=== PATIENT | female | born 1965 | race African-American/Black ===

== ENCOUNTER 2025-04-01 10:23 | Emergency (ER) | payer OTHER, SELFPAY ==
--- NOTE | ~2025-04-01 | XR_ITS ---
EXAMINATION: XR CHEST CLINICAL INFORMATION: Shortness of breath COMPARISON: None available. TECHNIQUE: Frontal view of the chest was obtained. FINDINGS: No consolidation, pleural effusion or pneumothorax. Mild prominence of the interstitial markings. Cardiomediastinal silhouette size is normal. Degenerative changes in the acromioclavicular joints. XR/XR chest 1V IMPRESSION: Mild interstitial lung edema versus acute small airway inflammatory process. Electronically signed by: Merritt Flores MD 04/01/2025 11:45 AM CINDY
[2025-04-01 10:32] VITALS: BP 159/76; BP 162/55; PULSE 113; PULSE 118; RESP 20; TEMP 36.6; O2SAT 100; O2SAT 92; BMI 31.4
[2025-04-01 10:41] VITALS: BP 159/76; PULSE 118; RESP 20; TEMP 36.6; O2SAT 92
--- NOTE | 2025-04-01 11:28 | ECG_ITS ---
Test Reason : SOB Blood Pressure : */* mmHG Vent. Rate : 107 BPM Atrial Rate : 107 BPM P-R Int : 170 ms QRS Dur : 80 ms QT Int : 330 ms P-R-T Axes : 66 27 57 degrees QTcB Int : 440 ms Sinus tachycardia Cannot rule out Anterior infarct , age undetermined Abnormal ECG No previous ECGs available Referred By: Generic ED Physician Electronically Signed By: CALI RUIZ MD
--- NOTE | 2025-04-01 12:05 | ED.GENADULT ---
HPI - General Adult General Chief complaint: Dyspnea Stated complaint: SOB,UPDRAFT GIVEN PER EMS Time Seen by Provider: 04/01/25 11:53 Source: patient Mode of arrival: ambulatory Limitations: no limitations History of Present Illness ED Provider: DR. Guaman HPI narrative: 59-year-old female history of asthma presented presented with 2 days of shortness of breath and wheezing symptoms started after patient was cleaning the basement thinking that she was exposed to something that triggered her asthma, patient used albuterol with minimal improvement today patient feels much better, no chest pain, no lower extremity swelling or edema, no fever, no chills. Patient is active cigarette and marijuana smoker. Related Data Previous Rx's ?Medication ?Instructions ?Recorded albuterol sulfate 2.5 mg/3 mL 2.5 mg (3 mL) inhalation Q4-6H PRN 04/01/25 (0.083 %) solution for nebulization shortness of breath or wheezing #90 mL albuterol sulfate 90 mcg/actuation 2 puff inhalation Q6H PRN 04/01/25 aerosol inhaler (Ventolin HFA) shortness of breath or wheezing #8.5 grams azithromycin 250 mg tablet See Rx Instructions PO .COMPLEX #6 04/01/25 (Zithromax Z-Everette) tabs prednisone 10 mg tablet 10 mg PO BID #10 tabs 04/01/25 Allergies Allergy/AdvReac Type Severity Reaction Status Date / Time bupropion (From Wellbutrin) Allergy Hives Verified 04/01/25 10:40 Review of Systems Review of Systems: All other systems are reviewed and are negative Constitutional: Reports as per HPI and Reports no additional constitutional complaints Eyes: Reports as per HPI and Reports no additional eye complaints Reports system reviewed and no additional complaints, except as documented Cardiovascular: Reports as per HPI and Reports no additional cardiovascular complaints Respiratory: Reports as per HPI and Reports no additional respiratory complaints Gastrointestinal: Reports as per HPI and Reports no additional gastrointestinal complaints Genitourinary: Reports no additional female genitourinary complaints Musculoskeletal: Reports no additional musculoskeletal complaints Skin/Breast: Reports system reviewed and no additional complaints, except as docu Psychiatric: Reports no additional psychiatric complaints Endocrine: Reports no additional endocrine complaints Hematologic/Lymphatic: Reports no additional hematologic/lymphatic complaints Allergic/Immunologic: Reports no additional allergic/immunologic complaints Reports system reviewed and no additional complaints, except as documented and Reports Abnormal speech present [facility] Social History Social History Smoked in Last 30 Days: Yes Use of substances other than those prescribed or required for medical reasons: Yes Substance Use Type: Marijuana Substance Use Frequency: Daily Advance Directives: No Advance Directives Information Provided: Yes Do you have a plan to hurt others: No Plan Patient : No Physical Exam ED Vital Signs: Vital Signs - 24 hr 04/01/25 10:32 04/01/25 10:41 04/01/25 12:21 Temperature 97.9 F 97.9 F Pulse Rate 118 H 118 H 118 H Respiratory Rate 20 20 22 H Blood Pressure 159/76 H 159/76 H Pulse Oximetry 92 92 Oxygen Delivery Method Room Air Room Air 04/01/25 13:10 Temperature 97.6 F Pulse Rate 116 H Respiratory Rate 22 H Blood Pressure 163/94 H Pulse Oximetry 92 Oxygen Delivery Method Room Air BMI result Body Mass Index 31.4 Vital signs have been reviewed and appear to be correct. Blood pressure elevated. Heart rate tachycardic, Respiratory rate normal. Temperature normal. Oxygen saturation normal. Appearance: Alert. Oriented X3. No acute distress. Head: Normal external exam. Normocephalic. Atraumatic. No Rosen signs noted. No raccoon eyes noted Eyes: PERRLA. EOMI. Conjunctiva and sclera normal. Eyelids normal. ENT: TM's Normal. Pharynx normal. Uvula midline. Moist mucous membranes. No trismus noted. No drooling noted. No muffled voice noted. Neck: Normal inspection. Neck supple. FROM. No adenopathy. Thyroid Normal. No meningeal signs. No neck mass noted. CVS: Normal heart rate and rhythm. Heart sound normal. No murmurs noted. Pulses normal throughout. Respiratory: No respiratory distress. Painless inspiration. Breath sounds normal. No wheezes/rales/rhonchi noted. Chest nontender. No accessory muscle usage noted or decreased air movement noted. Abdomen: Soft and nontender. Bowel sounds normal in all 4 quadrants. No distention noted. No organomegaly noted. No visible injury noted. Back: No CVA tenderness. Full range of motion noted. Skin: Skin warm and dry. Normal skin color. Normal skin turgor. No rashes/lesions/lacerations noted. Extremities: No lower extremity edema. Extremities exhibit normal range of motion. Extremities nontender. Neuro: Oriented X 3. Cranial nerve exam: II-XII are grossly intact No motor deficit. No sensory deficit. Reflexes normal. Course Reevaluation(s) Reevaluation #1: 59-year-old female history of asthma presented with shortness of breath since yesterday, patient has issue at with her 1st in the basement with leakage, questionable mold building in the basement trigger patient's symptoms. Patient today feels much better in the ED and requesting to be discharged., will start the patient on prednisone/Z-Everette/albuterol and follow-up with PCP. Time: 15:04 Medications Administered Discontinued Medications Generic Name Dose Route Start Last Admin Trade Name Freq PRN Reason Stop Dose Admin Albuterol Sulfate 2.5 mg/ 0 mg 04/01/25 12:17 04/01/25 12:21 Albuterol/Ipratropium 3 ml INHALE 04/01/25 12:18 1 dose ONCE ONE Administration Methylprednisolone Sodium Succinate 125 mg 04/01/25 12:11 04/01/25 12:24 Methylprednisolone Sod Succ 125 Mg/2 Ml Vial IVPUSH 04/01/25 12:12 125 mg ONCE ONE Administration Medical Decision Making Differential Diagnosis Differential Diagnoses: The differential diagnosis associated with the presentation includes (Asthma, pneumonia, pneumothorax, pleural effusion, electrolyte derangement, ACS.) Admission/Observation Consideration of admission/observation: Escalation of care including admission/observation considered Lab Data MDM Lab Attestation statement: I reviewed the patient's lab results. 04/01/25 11:51 04/01/25 11:51 Labs: Lab Results 04/01/25 Range/Units 11:51 WBC 11.8 H (4.8-10.8) X10*3/uL RBC 5.50 (4.20-5.50) X10*6/uL Hgb 15.1 (12.0-16.0) g/dl Hct 45.1 (37.0-47.0) % MCV 82.0 (80.0-98.0) fL MCH 27.5 (27.0-33.0) pg MCHC 33.5 (31.0-35.0) g/dl RDW 12.4 (11.0-16.0) % Plt Count 319 (160-400) X10*3/uL MPV 9.7 (9.4-12.3) fL Immature Gran % (Auto) 0.4 (0.0-0.4) % Neut % (Auto) 92.5 H (45-73) % Lymph % (Auto) 5.6 L (20-40) % Gilmer % (Auto) 1.3 L (2-11) % Eos % (Auto) 0.0 (0-4) % Baso % (Auto) 0.2 (0-2) % Lymph # (Auto) 0.7 L (1.2-4.9) X10*3/uL Gilmer # (Auto) 0.2 (0.1-1.2) X10*3/uL Eos # (Auto) 0.0 (0.0-0.4) X10*3/uL Baso # (Auto) 0.0 (0.0-0.2) X10*3/uL Abs Immat Gran (auto) 0.05 H (0.00-0.03) X10*3/uL Absolute Neuts (auto) 10.9 H (2.0-8.3) x10*3/uL Absolute Nucleated RBC 0.000 (0.0-0.012) X10*3/uL Nucleated RBC % (auto) 0.0 (0.0-0.2) /100WBC Smear Tech's Comments VERIFIED Sodium 142 (135-145) mmol/L Potassium 4.0 (3.3-5.1) mmol/L Chloride 108 (96-108) mmol/L Carbon Dioxide 23 (22-29) mmol/L Anion Gap 15 (12-20) BUN 13 (9-16) mg/dL Creatinine 0.71 (0.5-1.4) mg/dL Estim Creat Clear Calc 92.2 Estimated GFR > 60 Random Glucose 163 H (60-115) mg/dL Calcium 11.8 H (8.4-10.2) mg/dL Troponin I High Sens < 2.7 (<3.5-17.0) ng/L NT-Pro-B Natriuret Pep 30.2 (<300) pg/mL Independent Interpretation I performed an independent interpretation of an: EKG (Sinus tachycardia at 01:07, normal axis deviation, normal intervals, no ST-T changes, no old EKG to compare.) Radiology Impression Discussion of test interpretation with radiology: I have reviewed the radiologist's reading. Discharge Plan Discharge Clinical Impression: Asthma with exacerbation Patient Disposition: Home, Self-Care Instructions: Asthma (ED) Prescriptions: New albuterol sulfate [Ventolin HFA] 90 mcg/actuation HFA aerosol inhaler 2 puff inhalation Q6H PRN (Reason: shortness of breath or wheezing) Qty: 8.5 0RF albuterol sulfate 2.5 mg /3 mL (0.083 %) solution for nebulization 2.5 mg inhalation Q4-6H PRN (Reason: shortness of breath or wheezing) Qty: 90 0RF prednisone 10 mg tablet 10 mg PO BID Qty: 10 0RF azithromycin [Zithromax Z-Everette] 250 mg tablet See Rx Instructions .ROUTE .COMPLEX Qty: 6 0RF Rx Instructions: For 250 mg dose pack: take 500 mg today (day 1), then 250 mg for 4 days (days 2-5) Referrals: Marci Mora MD [Primary Care Provider, Internal Medicine] Interventions: ED Discharge Assessment Last Done: 04/01/25 15:06 Print Language: Macedonian
[2025-04-01 12:07] LABS: Hematocrit 45.1 % (37.0-47.0); Hemoglobin 15.1 g/dl (12.0-16.0); Imm Gran Abs Auto 0.05 X10*3/uL (0.00-0.03); Imm Gran Pct Auto 0.4 % (0.0-0.4); Lymphocytes Absolute Auto 0.7 X10*3/uL (1.2-4.9); MANUAL DIFF FLAG SCAN; Mean Corpuscular HGB Conc 33.5 g/dl (31.0-35.0); Mean Corpuscular Hemoglobin 27.5 pg (27.0-33.0); Mean Corpuscular Volume 82.0 fL (80.0-98.0); NRBC Abs Auto 0.000 X10*3/uL (0.0-0.012); NRBC Pct Auto 0.0 /100WBC (0.0-0.2); Platelet Count 319 X10*3/uL (160-400); Red Blood Count 5.50 X10*6/uL (4.20-5.50); SCAN SMEAR FLAG 1; White Blood Count 11.8 X10*3/uL (4.8-10.8)
[2025-04-01 12:18] LABS: Anion Gap 15 (12-20); Blood Urea Nitrogen 13 mg/dL (9-16); Calcium 11.8 mg/dL (8.4-10.2); Carbon Dioxide 23 mmol/L (22-29); Chloride 108 mmol/L (96-108); Creatinine Clr Calc Pharmacy 92.2; Estimated Glomerular Filt Rate > 60; Potassium 4.0 mmol/L (3.3-5.1); Sodium 142 mmol/L (135-145)
[2025-04-01 12:21] VITALS: PULSE 118; RESP 22; O2SAT 94
[2025-04-01] MEDS: Albuterol Sulfate 2.5 MG, Albuterol/Iprat 2.5/0.5MG 3 ML 3 ML INHALE (12:21)
[2025-04-01 12:25] LABS: Troponin-I High Sensitivity < 2.7 ng/L (<3.5-17.0)
[2025-04-01 12:30] LABS: NT Pro B Type Natriuretic Pept 30.2 pg/mL (<300)
--- OUTSIDE RECORDS SUMMARY | 2025-04-01 13:03 | XMS_ITS | Encounter Summary ---
Author Organization [facility] Address [address] [facility] [address] [place] [phone] Phone Care Team Providers Care Helicopter Pilot Name Role Phone Marci Mora MD Primary Care Provider Marci Mora MD Unavailable [phone] Encounter Details Date Type Department Care Team (Late st Contact Info) Description 05/20/2024 Procedure Pass [facility], Ct Scan - [address] [id number] Social History Tobacco Use Types Packs/Day Years Used Date Smoking Tobacco: Some Days Cigarettes 0.5 45.9 Started: 1979 Smokeless Tobacco: Never Comments:smokes about 7 ciga rettes, up to 1/2 PPD, started around 16 Alcohol Use Standard Drinks/Week Comments Yes 0 (1 standard drink = 0.6 oz pur e alcohol) 3 per week Child or Family Care Answer Date Record ed Do you have problems with on e of the following making it difficult for you to work, study, or receive health care? No 10/31/2023 Education Answer Date Recorded Are you interested in help w ith more adult education (for example, completing high school, GED, job training, learning the Greek language, technical skills, or developing parenting skills)? No 10/31/2023 Are you concerned about learning? Not on file 10/31/2023 No 10/31/2023 Yes 10/31/2023 Food Answer Date Recorded Within the past 6 months we worried whether our food would run out before we got money to buy more. Never True 10/31/2023 Within the past 6 months the food we bought just didn't last and we didn't have enough money to get more. Never True Residential Stability Answer Date Recor ded What is your housing situation today? I have finn burns 10/31/2023 How many times have you move d in the past 12 months? Zero (I did not move) 10/31/2023 Paying for Meds Answer Date Recorded Do you have trouble paying for medicines? No 10/31/2023 Paying Utility Bills Answer Date Record ed Do you have trouble paying your heating or elect ricity bill? No 10/31/2023 Transportation Answer Date Recorded Has the lack of transportati on kept you from medical appointments or from getting medications? No 10/31/2023 Unemployment Answer Date Recorded Are you currently unemployed or working on a part-time or temporary basis, and looking for work? No 10/27/2021 Digital Access Answer Date Recorded No 10/31/2023 Yes 10/31/2023 Do you have reliable internet access at home? Ye s 10/31/2023 Do you have a device (e.g., phone, tablet, computer) with a working camera? Yes 10/31/2023 Intimate Partner Violence Answer Date R ecorded Are you denied basic needs s uch as food, clothing, or medical care? No 01/11/2024 In the past 12 months have y ou been in a relationship with a person who hurts, threatens, or tries to control you? No 01/11/2024 Are you denied basic needs s uch as food, clothing, or medical care? No 01/11/2024 In the past 12 months have y ou been in a relationship with a person who hurts, threatens, or tries to control you? No 01/11/2024 Comments Unknown Sex and Gender Information Value Date Recorded Sex Assigned at Female 12/12/2022 1:14 PM EDT Legal Sex Female 9:40 PM EDT Gender Identity Female 12/12/2022 1:14 PM EDT Sexual Orientation Asexual 01/14/2025 11 :24 AM EDT Sexual Orientation Straight 01/14/2025 11 :24 AM EDT Occupation Industry Job Start Date Job End Date [employer] Not on file Not on file Not on file documented as of this encounter Plan of Treatment Upcoming Encounters Date Type Department Care Team (Late st Contact Info) Description 06/11/2025 11:30 AM EST Office Visit [facility] Pulmonary, Allergy and Critical Care Medicine [address] [place] [address] Han Dickinson MD [address] [address] [email or web address] documented as of this encounter Visit Diagnoses Not on filedocumented in this encounter Additional Health Concerns Infection Onset Date Last Indicated Resolved Time CoV-Risk Comment:Per note documentation 12/31/2024 12/31/2024 12:51 PM EDT Assessment Noted Time PHQ-9 Depression Total Score: 4 08/01/19 24 1:54 PM EDT A Body Mass Index follow-up plan has been documented for the patient 10/31/2023 10:13 PM EDT PHQ-2 Depression Total Score: 0 10/31/19 8:31 AM EDT documented as of this encounter Care Teams Helicopter Pilot Relationship Specialty Start Date End Date Marci Mora MD [address] [place] [phone] PCP - General Internal Medicine 09/05/17 Marci Mora MD [address] [place] [phone] Insurance Assigned Provider 08/26/23 08/25/24 documented as of this encounter Additional Source Comments The information contained in this document represents components of the legal health record. It is not the complete legal health record.[facility]
--- OUTSIDE RECORDS SUMMARY | 2025-04-01 13:03 | XMS_ITS | Encounter Summary ---
Author Organization [facility] Address [address] [place] [address] [place] [phone] Phone Care Team Providers Care Catalyst Unit Operator Name Role Phone Marci Mora MD Primary Care Provider [phone] Marci Mora MD Unavailable [phone] Encounter Details Date Type Department Care Team (Late st Contact Info) Description 01/26/2024 Procedure Pass [facility], [address] [place] [address] Social History Tobacco Use Types Packs/Day Years [...] high school, GED, job training, learning the Azerbaijani language, technical skills, or developing parenting skills)? [...] Pulmonary, Allergy and Critical Care Medicine [address] [facility] [place] [address] Han Dickinson MD [address] [address] [email or web address] documented as of this encounter Visit Diagnoses Not on filedocumented in this encounter Additional Health Concerns Infection Onset Date Last Indicated Resolved Time COVID-19 12/30/2023 01/12/2024 02/02/2024 1:21 AM EDT CoV-Risk Comment:Per note documentation 12/31/2024 12/31/2024 12:51 PM EDT Assessment Noted Time PHQ-9 Depression Total Score: 4 08/01/19 1:54 PM EDT A Body Mass Index follow-up plan has been documented for the patient 10/31/2023 10:13 PM EDT PHQ-2 Depression Total Score: 0 10/31/19 8:31 AM EDT documented as of this encounter Care Teams Catalyst Unit Operator Relationship Specialty Start Date End Date Marci Mora MD [address] [place] [phone] PCP - General Internal Medicine 09/05/17 Marci Mora MD [address] [place] [phone] Insurance Assigned Provider 08/26/23 08/25/24 documented as of this encounter Additional Source Comments The information contained in this document represents components of the legal health record. It is not the complete legal health record.[facility]
--- OUTSIDE RECORDS SUMMARY | 2025-04-01 13:03 | XMS_ITS | Encounter Summary ---
Author Organization [facility] Address [address] [facility] [address] [place] [phone] Phone Care Team Providers Care Nurse Substance Abuse Name Role Phone Marci Mora MD Primary Care Provider Marci Mora MD Unavailable [phone] Encounter Details Date Type Department Care Team (Late st Contact Info) Description 01/11/2024 Procedure Pass [facility], Ct Scan - [address] [address] Social History Tobacco Use Types Packs/Day Years [...] high school, GED, job training, learning the American language, technical skills, or developing parenting skills)? [...] on file documented as of this encounter Functional Status * Calculated C-SSRS Risk Score (Lifetime/Recent) Answer Date of Assessment Author No Risk Indicated 01/11/2024 8:49 AM EDT Cale Smith RN * [place] Suicide Severity Rating Scale (Screener/Recent Self-Report) Question Answer Date of Assessment Author 1. Wish to be (Past 1 Month) No 024 8:49 AM EDT Blank Smith, JAKE 2. Non-Specific Active Suici constance Thoughts (Past 1 Month) No 01/11/2024 8:49 AM EDT Blank Smith RN 6. Suicidal Behavior (Lifetime) No 8:49 AM EDT Blank Simth RN documented as of this encounter Plan of Treatment Upcoming Encounters Date Type Department Care Team (Late st Contact Info) Description 06/11/2025 11:30 AM EST Office Visit [facility] Pulmonary, Allergy and Critical Care Medicine [address] [place] [address] Han Dickinson MD [address] [place] [phone] [email or web address] documented as of this encounter Visit Diagnoses [...] documented as of this encounter Care Teams Nurse Substance Abuse Relationship Specialty Start Date End Date Marci Mora MD [address] [place] [phone] [email or web address] PCP - General Internal Medicine 09/05/17 Marci Mora MD [address] [place] [address], [address] [place] [address] [email or web address] Insurance Assigned Provider 08/26/23 08/25/24 documented as of this encounter Additional Source Comments The information contained in this document represents components of the legal health record. It is not the complete legal health record.[facility]
--- OUTSIDE RECORDS SUMMARY | 2025-04-01 13:03 | XMS_ITS | Encounter Summary ---
Author Organization [facility] Address [address] [facility] [address] [place] [address] Phone Care Team Providers Care Lawn Caretaker Name Role Phone Kiki Valencia DO Primary Care Provider Marci Mora MD Primary Care Provider [phone] Marci Mora MD Unavailable [phone] Encounter Details Date Type Department Care Team (Late st Contact Info) Description 05/16/2017 Ancillary Orders [facility], X-Ray - [address] [place] [address] Ness Lambert, [facility] [address] [facility], [address] [place] [address] [email or web address] Fever, unspecified fever cause; Malaise; Wheezing Social History Tobacco Use Types Packs/Day Years Used Date Smoking Tobacco: Never Assessed Comments Unknown Sex and Gender Information Value Date Recorded Sex Assigned at Female 12/12/2022 1:14 PM EDT Legal Sex Female 9:40 PM EDT Gender Identity Female 12/12/2022 1:14 PM EDT Sexual Orientation Asexual 01/14/2025 11 :24 AM EDT Sexual Orientation Straight 01/14/2025 11 :24 AM EDT documented as of this encounter Plan of Treatment Upcoming Encounters Date Type Department Care Team (Late st Contact Info) Description 06/11/2025 11:30 AM EST Office Visit [facility] Pulmonary, Allergy and Critical Care Medicine [address] [place] [address] [place] [address] Han Dickinson MD [address] [place] [address] 2nd [place] [address] [email or web address] documented as of this encounter Results * XR CHEST PA AND LATERAL 2 VIEWS (05/16/2017 12:36 PM EST) Anatomical Region Laterality Modality Chest Radiographic Mariely ging 05/16/2017 12:5 0 PM EST Impressions 05/16/2017 12:52 PM EST Negative chest radiographs. POS - [id number] Narrative 05/16/2017 12:52 PM EST HISTORY: Fever, wheezing and malaise. COMPARISON: Chest x-rays from eight 08/03 to 02/24/2017. FINDINGS: PA and lateral views of the chest obtained. Lungs appear clear. No evidence of pleural effusions or pneumothorax. Great vessel and cardiomediastinal contours remain normal and stable in appearance. Procedure Note Vikas Harris MD - 05/16/2017 HISTORY: Fever, wheezing and malaise. COMPARISON: Chest x-rays from eight 08/03 to 02/24/2017. FINDINGS: PA and lateral views of the chest obtained. Lungs appear clear. No evidence of pleural effusions or pneumothorax.Great vessel and cardiomediastinal contours remain normal and stable inappearance. IMPRESSION: Negative chest radiographs. POS - [id number] us Ness Lambert [facility] IMG XR CHEST Final Re sult documented in this encounter Visit Diagnoses Diagnosis Fever, unspecified fever cause Malaise Other malaise and fatigue Wheezing Fever, unspecified fever cause Malaise Other malaise and fatigue Wheezing documented in this encounter Additional Health Concerns Infection Onset Date Last Indicated Resolved Time CoV-Risk 02/21/2023 02/21/2023 03/04/2023 1:21 AM EDT CoV-Risk 08/01/2023 08/01/2023 08/12/2023 1:22 AM EDT COVID-19 12/30/2023 01/12/2024 02/02/2024 1:21 AM EDT CoV-Risk Comment:Per note documentation 12/31/2024 12/31/2024 12:51 PM EDT documented as of this encounter Care Teams Lawn Caretaker Relationship Specialty Start Date End Date Kiki Valencia DO [address] [place] [phone] PCP - General 03/07/17 09/04/17 Marci Mora MD [address] [place] [phone] PCP - General Internal Medicine 09/05/17 Marci Mora MD [address] [place] [phone] Insurance Assigned Provider 08/26/23 08/25/24 documented as of this encounter Additional Source Comments The information contained in this document represents components of the legal health record. It is not the complete legal health record.[facility]
--- OUTSIDE RECORDS SUMMARY | 2025-04-01 13:03 | XMS_ITS | Clinical Summary ---
Author Organization [facility] Address [address] [place] [id number] Phone Care Team Providers Care Malt Liqu[employer] Sales Representative Name Role Phone Marci Mora MD Primary Care Provider Allergies Active Allergy Reactions Criticality Noted Date Comments Bupropion Hcl Hives Medium 09/06/2017 Hives, itchy Medications fluticasone furoate-vilante roL (BREO ELLIPTA) 200-25 mcg/dose inhalerIndicati ons:Severe asthma with exacerbation, unspecified whether persistent TAKE 1 PUFF BY MOUTH EVERY DAY 60 each 5 5 Active albuterol 2.5 mg /3 mL (0.083 %) nebulizer solution Take 3 mL (2.5 mg total) by nebulization every 4 (four) hours as needed for shortness of breath/dyspnea. Contact your PCP for refills 75 mL 5 Active predniSONE (DELTASONE) 10 MG tablet TAKE 6 TABLETS DAILY FOR 2 DAYS , TAKE 5 TABLETS DAILY FOR 2 DAYS , TAKE 4 TABLETS DAILY FOR 2 DAYS , TAKE 3 TABLETS DAILY FOR 2 DAYS , TAKE 2 TABLETS DAILY FOR 2 DAYS , TAKE 1 TABLET DAILY FOR 2 DAYS 42 tablet 5 Active nicotine (NICODERM CQ) 21 mg/[address] 1 patch onto the skin daily. 30 patch 5 Active cholecalciferol (VITAMIN D3) 50,000 unit capsule Take 1 capsule (50,000 Units total) by mouth once a week. 4 capsule 5 Active albuterol 90 mcg/actuation inhalerIndicati ons:Shortness of breath INHALE 2 PUFFS INTO THE LUNGS EVERY 4 HOURS NEEDED FOR WHEEZE 6.7 g 2 5 Active celecoxib (CELEBREX) 200 MG capsule TAKE 1 CAPSULE BY MOUTH TWICE A DAY 60 capsule 1 5 Active Active Problems Problem Noted Date Diagnosed Date Asthma exacerbation 12/31/2024 Assessment & Plan (01/02/2025 12:49 PM EDT): Patient reports has had worsened short of breath for few weeks. Did have prednisone course as outpatient When presented to the ED using grocery clerk marking muscles respiratory elevated. Improved in the ED with Solu-Medrol and nebs. Admission requested. Chest x-ray negative. D-dimer 333 Reports she is short of breath chronically. Short of breath with mild exertion she does not have a compliance program manager did have PFTs in the past year see below. Likely has components of COPD and restrictive lung disease in addition to asthma, no bronchodilator response on her PFTs in 2023 Improving overall , Did need oxygen last night -Continue IV Solu-Medrol, DuoNebs - Outpatient referral to pulm regarding respiratory issues, also wonder if she has RICKY-no records in epic of a sleep study or echo, appointment made (PFTS bnormal pulmonary function studies as evidenced by a mild restrictive ventilatory defect and complex restriction possibly on the basis of obesity given the markedly impaired ERV and elevated BMI. There is a moderate impairment in diffusion capacity which, in this clinical context, may be secondary to emphysema, pulmonary vascular disease, interstitial lung disease and/or anemia. Spirometry reveals no evidence of airflow limitation and no bronchodilator response.) Assessment & Plan (01/01/2025 2:22 PM EDT): Patient reports has had worsened short of breath for few weeks. Did have prednisone course as outpatient When presented to the ED using grocery clerk marking muscles respiratory elevated. Improved in the ED with Solu-Medrol and nebs. Admission requested. Chest x-ray negative. D-dimer 333 Reports she is short of breath chronically. Short of breath with mild exertion she does not have a compliance program manager did have PFTs in the past year see below. Likely has components of COPD and restrictive lung disease in addition to asthma, no bronchodilator response on her PFTs in 2023 -Continue IV Solu-Medrol, DuoNebs - Outpatient referral to pulm regarding respiratory issues, also wonder if she has RICKY-no records in epic of a sleep study or echo (PFTS bnormal pulmonary function studies as evidenced by a mild restrictive ventilatory defect and complex restriction possibly on the basis of obesity given the markedly impaired ERV and elevated BMI. There is a moderate impairment in diffusion capacity which, in this clinical context, may be secondary to emphysema, pulmonary vascular disease, interstitial lung disease and/or anemia. Spirometry reveals no evidence of airflow limitation and no bronchodilator response.) Assessment & Plan (12/31/2024 10:22 PM EDT): - Patient reports significantly worsening shortness of breath since yesterday not responding to albuterol inhalers and nebulizers - She is not sure why set off this exacerbation but she was [facility] a [facility]26 and feels that she may have caught a cold at that time as she has had worsening congestion since that day -Continue IV Solu-Medrol, DuoNebs -prn Robitussin -Oxygen supplementation if needed Hilar adenopathy 05/20/2024 Assessment & Plan (05/20/2024 9:35 PM EST): This was noted on a CT in December and a 3 month follow up was recommended. When this was last ordered, it was not approved. This does not make sense as she is a smoker. Will order again. Orders: CT Chest; Future Enlarged lymph nodes 03/18/2024 Assessment & Plan (03/18/2024 4:41 PM EDT): This was noted incidentally on chest CT. Follow up ordered. Vitamin D deficiency 01/28/2024 Adrenal nodule 01/28/2024 Assessment & Plan (01/28/2024 9:38 PM EDT): Will get MRI for further evaluation of adrenal nodule noted during hospitalization. Severe persistent asthma without complication Assessment & Plan (01/14/2025 10:03 AM EDT): She had a recent hospitalization and is now improved. She thinks that working outside may have set off this most recent exacerbation. She will finish the steroid taper. She has an appointment with Dr. Dickinson in February to discuss her asthma. She continues to work on smoking cessation. Handicapped placard filled out today. Continue Breo. An order for a nebulizer was completed yesterday and I hope that she is able to receive this soon. Assessment & Plan (06/20/2024 1:00 PM EST): Her asthma control has improved but she is still unable to return to work at this time. Despite improved control, when she is exposed to the dust and ink at the office, her asthma is triggered. During exacerbations, she is unable to walk across a room. Also, during an exacerbation, it has taken several weeks to return her to baseline even with use of prednisone. We discussed that she is unable to return to her work environment given the triggers there. Will support her correction disability application. Assessment & Plan (05/20/2024 9:35 PM EST): Her asthma control has improved. She was switched to Breo due to insurance formulary. Will monitor to make sure that this improves. Assessment & Plan (03/18/2024 3:48 PM EDT): She has not noted any improvement with the addition of Advair. Will increase this to 500/50. We discussed that it does not appear that prednisone is adding any benefit at this point. Will taper off over the next several weeks. She feels best when using her albuterol inhaler or the nebulizer. This is short lived. She was unable to make it to her PFT appointment last week. This has been rescheduled. We also discussed having a pulmonology appointment as well. She is unable to return to work at this time. Will fill out form detailing this. Will follow up again after PFTs are done. Assessment & Plan (01/28/2024 9:31 PM EDT): She has had an exacerbation of her asthma related to recent COVID infection. Will add Advair. She will need a follow up chest CT in 3 months to assess a lymph node seen during her hospitalization. Moderate persistent asthma with acute exacerbati on 11/19/2023 Assessment & Plan (01/28/2024 3:42 PM EDT): There is a possibility of asthma or other chronic lung conditions such as COPD or emphysema, given the smoking history. A pulmonary function test will be ordered to assess lung function and rule out other chronic lung issues. A prescription for prednisone 10 mg, to be taken with food in the morning, will be provided. It is recommended to take the medication with breakfast to mitigate potential gastrointestinal side effects. Continues with Pulmicort BID and rescue inhaler. Interested in nebulizer treatments, they will explore if this is available through their insurance and an order will be sent to their pharmacy or a DME supplier upon their request. Assessment & Plan (01/12/2024 3:18 PM EDT): Patient presents with SOB x 1 month following COVID diagnosed on 12/29. She did take Paxlovid. Patient states that her asthma diagnosis is relatively new, she also states she has had hoarseness for several months, denies any weight loss.She recently was on a steroid taper and has been using inhalers and nebulizers at home but still having severe symptoms. Toxic in the ED dropping down to 88% requiring 2 L, also having intermittent tachycardia. No fever or hypotension. Patient has had sputum color and character change. Chest x-ray shows no acute cardiopulmonary abnormality, does have a leukocytosis which may be secondary to steroids. CT reveals diffuse bronchial wall thickening with scattered areas of mucous plugging in the small airways suggestive of bronchitis. No focal consolidation. Patient admitted and started on doxycycline, steroids, nebs, pulmonary toileting, as needed oxygen . 01/11-stable with no hypoxemia O2 sat 93 to 98% on room air. Some bronchospasms with cough for ambulation. Plan - Continue doxycycline, steroids, scheduled DuoNebs 4 times daily. - Add as needed albuterol every 4 hours for wheezing. She is hoping that she can see a compliance program manager as an outpatient on discharge regarding her recent diagnosis of asthma. Assessment & Plan (11/19/2023 7:32 PM EDT): Will treat for probably asthma. Will add fluticasone to see if this helps to improve her breathing. Vitamin D deficiency, unspecified 10/31/2023 Hypercalcemia 10/31/2023 Assessment & Plan (01/02/2025 12:49 PM EDT): -Hypercalcemia is likely secondary to hyperparathyroidism due to vitamin D deficiency -Patient reports she is no longer taking vitamin D supplements -She has had mild hypercalcemia as far back as 2022 vitamin D level 11, started vitamin D supplement, recommended patient follow-up with PCP for recheck Assessment & Plan (01/01/2025 2:12 PM EDT): -Hypercalcemia is likely secondary to hyperparathyroidism due to vitamin D deficiency -Patient reports she is no longer taking vitamin D supplements -She has had mild hypercalcemia as far back as 2022 Plan check vitamin D level Assessment & Plan (12/31/2024 10:22 PM EDT): -Hypercalcemia is likely secondary to hyperparathyroidism due to vitamin D deficiency -Patient reports she is no longer taking vitamin D supplements -She has had mild hypercalcemia as far back as 2022 Assessment & Plan (10/31/2023 10:10 PM EDT): 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 Will get updated lab work. Hyperparathyroidism due to vitamin D deficiency 10/31/2023 Assessment & Plan (01/12/2024 3:21 PM EDT): Admission labs revealed hypercalcemia related to hyperparathyroidism. Calcium was 11.6 review of charts indicate that patient has had an elevated calcium as far back as October 2022 which was 11.2 Ionized calcium noted to be elevated at 11.5 On discussion with patient she states that she does not see an flask carrier and is managed by her PCP. Plan - Given elevated calcium in the setting of hyperparathyroidism will start on Cinnasil at 30 mg twice daily - Repeat calcium levels in a.m. - Refer patient to flask carrier after discharge. Hyperlipidemia 10/31/2023 Assessment & Plan (10/31/2023 10:10 PM EDT): She does not wish to start a statin at this time but she may consider it in the future if unable to improve with lifestyle changes. Shortness of breath 10/31/2023 Assessment & Plan (01/28/2024 3:44 PM EDT): Patient reported shortness of breath-reports inhaler has not been very effective but has used. Continues to have cough. Symptoms improve with steroids and antibiotics but quickly return. Red flags/ED precautions reviewed. Assessment & Plan (11/08/2023 1:14 PM EDT): Patient reported shortness of breath-reports inhaler has not been very effective but has used. Continues to have cough. Suspect bronchitis-treat with azithromycin and cough suppressant. Continue use of inhaler, no wheezing today. Consider steroids if persistent. Scapulalgia 10/12/2023 Assessment & Plan (10/12/2023 9:56 PM EDT): Will add cyclobenzaprine to help with pain control. Cough 08/05/2023 Acute right-sided low back pain without sciatica 01/25/2023 Assessment & Plan (01/25/2023 10:00 AM EDT): This is improving as expected. We discussed that x-rays are not going to change the management of this. Next step is physical therapy. We discussed transitioning back into work for half time for a week and then increasing as tolerated. Anxiety 10/28/2022 Assessment & Plan (01/14/2025 10:03 AM EDT): She was having anxiety both before hospitalization and during hospitalization. We discussed that the steroids may have exacerbated this. She does not wish to start medication at this time. Assessment & Plan (11/19/2023 7:37 PM EDT): She has been having a harder time managing her anxiety. We discussed that work aggravates this. It would be best if she takes a break from work at this time. Will fill out paperwork stating this. Assessment & Plan (10/31/2023 10:11 PM EDT): She does not wish to start medication for her anxiety. Discussed other practices such as meditation to help improve her anxiety. Assessment & Plan (01/25/2023 9:54 AM EDT): She does not want any treatment for this. Assessment & Plan (10/28/2022 11:23 AM EDT): She feels she has more anxiety than depression. She would like to try meditation and yoga for this. Hot flashes due to menopause 09/25/2022 Assessment & Plan (09/25/2022 2:54 PM EDT): Still occurring. Shoulder clicking 05/19/2022 Assessment & Plan (05/19/2022 11:31 AM EST): No pain, will monitor. Smoker 02/28/2020 Assessment & Plan (05/20/2024 9:35 PM EST): She wants to work on smoking cessation. She was given patches in the past. We discussed giving these a try. Assessment & Plan (10/31/2023 10:12 PM EDT): Continue to encourage smoking cessation. Assessment & Plan (10/28/2022 10:35 AM EDT): She is cutting back on smoking by decreasing the times that she habitually smokes (e.g. after eating, with coffee). Restless legs 02/28/2020 Sickle cell trait 11/10/2017 Assessment & Plan (10/28/2022 10:33 AM EDT): No current health issues related to her sickle cell trait. Elevated blood pressure reading 11/10/2017 Assessment & Plan (01/14/2025 10:03 AM EDT): It is elevated. This may be secondary to prednisone. Assessment & Plan (01/02/2025 12:49 PM EDT): - Patient reports she is no longer on lisinopril and usually her blood pressure is controlled. High here in the hospital, continue to monitor may need to restart lisinopril Assessment & Plan (01/01/2025 2:12 PM EDT): - Patient reports she is no longer on lisinopril and usually her blood pressure is controlled. Initially elevated likely due to her acute respiratory issues, continue to monitor Assessment & Plan (12/31/2024 10:22 PM EDT): - Patient reports she is no longer on lisinopril and usually her blood pressure is controlled. It is elevated today likely due to her respiratory issues, continue to monitor and if persistent may need to restart antihypertensives Assessment & Plan (05/20/2024 9:35 PM EST): Improved blood pressure control compared to last visit. This is likely due to her improved lung function. Assessment & Plan (01/28/2024 9:23 PM EDT): Her blood pressure is elevated. However, given current respiratory symptoms, will not adjust medication at this time. Will reevaluate at next visit. Assessment & Plan (01/12/2024 3:22 PM EDT): BP was elevated in the ED and patient was continued on her lisinopril. BP improved but still elevated slightly to 141/82. - Will hold on further changes in monitor as elevations likely due to bronchospasms albuterol Assessment & Plan (10/31/2023 10:10 PM EDT): Her blood pressure is elevated. She has been without medication. Will monitor. She will work on adherence to her medication. Assessment & Plan (10/12/2023 9:52 PM EDT): Will start lisinopril for her hypertension. Assessment & Plan (08/05/2023 10:47 PM EDT): Under good control. Assessment & Plan (01/25/2023 9:54 AM EDT): Well controlled. Assessment & Plan (10/28/2022 10:33 AM EDT): Under good control. Continue lisinopril. Assessment & Plan (09/25/2022 2:50 PM EDT): Blood pressure improved. She is taking her blood pressure medication more regularly. Family history of ovarian cancer 09/05/2017 History of lipoma 09/05/2017 Mass of left breast 09/05/2017 Assessment & Plan (10/31/2023 10:11 PM EDT): Stable. She is followed at the [facility]. Assessment & Plan (10/28/2022 10:34 AM EDT): Stable. This is monitored at the [facility]. Obesity 09/05/2017 Assessment & Plan (10/28/2022 11:27 AM EDT): Her weight has been stable. Tobacco abuse 09/05/2017 Assessment & Plan (01/14/2025 10:03 AM EDT): She does have nicotine patches to help with smoking cessation. She is aware of the importance of smoking cessation. Eczema Fibrocystic breast Overview (09/06/2017): (breasts) Encounters Date Type Department Care Team Description 03/27/2025 Orders Only [facility] [address] [place] [address] [place] [address] Marci Mora MD Breast cancer screening by mammogram 02/27/2025 3:14 PM EDT - 02/27/2025 11:59 PM EDT Hospital Encounter [facility], [facility] - [address] [address] Marci Mora MD Discharge Disposition: Home or Self Care 02/27/[address] [place] [address] Marci Mora MD requesting call back 02/13/2025 11:40 AM EDT - 02/13/2025 11:59 PM EDT Hospital Encounter [facility] [address] [place] [address] [place] [id number] Jennifer Obrien CNP Discharge Disposition: Home or Self Care 02/12/2025 Ancillary Orders [facility] [address] [place] [address] Unknown, Unknown, MD 02/12/2025 Ancillary Orders [facility],Outside [facility] [address] [place] [address] Unknown, Unknown, MD 02/12/2025 Ancillary Orders [facility] [address] [place] [address] Unknown, Unknown, 02/12/2025 Ancillary Orders [facility] [address] [place] [address] Unknown, Unknown, 02/06/[address] [place] [address] Katelin Cunningham MA 02/05/2025 Procedure Pass [facility], [facility] - [facility] [address] [place] [address] 02/05/2025 Orders Only [address] [place] [address] Marci Mora MD Adrenal nodule (Primary Dx) 01/21/[address] [place] [address] Yolanda Schafer CNP Medication Refill 01/14/2025 9:15 AM EDT Office Visit [address] [place] [address] Marci Mora MD Severe persistent asthma without complication (Primary Dx); Anxiety; Elevated blood pressure reading; Tobacco abuse; Breast cancer screening by mammogram 01/04/2025 Refill [facility] [address] [place] [address] Rubens Leonardo CNP Medication Refill 01/03/2025 Telephone [facility] [address] [place] [address] Marci Mora MD TCM Visit (1. New Patient: YES/NO: no//2. Hospitalization Name:[facility] //3. Discharge Date:01/03/25/4. Reason for Visit+ Diagnosis:asthma /) 01/03/2025 Telephone [facility] [address] [place] [address] Marci Mora MD Medication Question (Breathing treatment machine ) 12/31/2024 4:57 PM EDT - 01/03/2025 12:28 PM EDT Hospital Encounter [facility] [address] [place] [address] Aime Awan MD Israeli, Diana A, DO Preston, Linda J, MD Discharge Disposition: Home or Self Care 12/31/2024 Telephone [facility] [address] [place] [address] [place] [address] Marci Mora MD Triage (Red + difficulty breathing + SOB + 3 days) from Last 3 Months Immunizations Immunization Administration Dates Next Due COVID-19 (Pre-03/13) Pfizer Vaccine, mRNA, PF ,09/03/2020 INFLUENZA, SPLIT VIRUS, TRIVALENT PF 01/26/2024 Influenza trivalent preservative free intraderma l 03/07/2014 PPD Test 08/02/2018 Pneumococcal conjugate PCV20 10/27/2021 Td, unspecified formulation 07/05/2005 Tdap 11/10/2017,04/10/2015 Varicella 08/26/2014,06/19/2013 Zoster recombinant 05/08/2019,02/15/2019 Family History Medical History Relation Comments Colon cancer Maternal Grandmother Ovarian cancer Maternal Grandmother under age 5 0 Colon cancer Mother Lung cancer Mother Relation Status Comments Maternal Grandmother Mother Social History Tobacco Use Types Packs/Day Years Used Date Smoking Tobacco: Some Days Cigarettes 0.5 45.9 Started: 1979 Smokeless Tobacco: Never Tobacco Cessation:Ready to Q uit: Not Asked; Counseling Given: Not Answered Comments:smokes about 7 cigarettes, up to 1/2 PPD, started around 16 [...] high school, GED, job training, learning the Azeri language, technical skills, or developing parenting skills)? No 10/31/2023 Are you concerned about learning? Not on file 10/31/2023 No 10/31/2023 Yes 10/31/2023 Food Answer Date Recorded Within the past 6 months we worried whether our food would run out before we got money to buy more. Never True 12/31/2024 Within the past 6 months the food we bought just didn't last and we didn't have enough money to get more. Never True Residential Stability Answer Date Recor ded What is your housing situation today? I have finn burns 12/31/2024 How many times have you move d in the past 12 months? Zero (I did not move) 12/31/2024 Paying for Meds Answer Date Recorded Do you have trouble paying for medicines? No 12/31/2024 Paying Utility Bills Answer Date Record ed Do you have trouble paying your heating or elect ricity bill? No 12/31/2024 Transportation Answer Date Recorded Has the lack of transportati on kept you from medical appointments or from getting medications? No 12/31/2024 Unemployment Answer Date Recorded Are you currently unemployed or working on a part-time or temporary basis, and looking for work? No 10/27/2021 Digital Access Answer Date Recorded No 12/31/2024 Yes 12/31/2024 Do you have reliable internet access at home? Ye s 12/31/2024 Do you have a device (e.g., phone, tablet, computer) with a working camera? Yes 12/31/2024 Intimate Partner Violence Answer Date R ecorded Are you denied basic needs s uch as food, clothing, or medical care? No 12/31/2024 In the past 12 months have y ou been in a relationship with a person who hurts, threatens, or tries to control you? No 12/31/2024 Are you denied basic needs s uch as food, clothing, or medical care? No 12/31/2024 In the past 12 months have y ou been in a relationship with a person who hurts, threatens, or tries to control you? 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 [employer] Not on file Not on file Not on file Last Filed Vital Signs Vital Sign Reading Time Taken Comments Blood Pressure 130/92 01/14/2025 9:39 AM EDT Pulse 82 01/14/2025 9:39 AM EDT Temperature 36 C (96.8 F) 01/14/2025 9:39 AM EDT Respiratory Rate 20 01/03/2025 11:36 AM EDT Oxygen Saturation 97% 01/14/2025 9:39 AM EDT Inhaled Oxygen Concentration 1% 01/01/2025 3 :13 AM EDT Weight 77.1 kg (170 lb) 02/21/2025 3:09 PM EDT Height 165.1 cm (5' 5 ) 02/21/2025 3:09 PM EDT Body Mass Index 28.29 02/21/2025 3:09 PM EDT Plan of Treatment Upcoming Encounters Date Type Department Care Team (Late st Contact Info) Description 06/11/2025 11:30 AM EST Office Visit [facility] [address] [place] [address] [place] [address] Han Dickinson MD [address] [facility] 2nd [place] [address] [email or web address] Maintenance Due Date Last Done Comments HEPATITIS C SCREENING 10/12/1983 HIV ONE-TIME SCREENING (18-65 YEARS) 10/[birth year]/1983 COLOGUARD 2010 FIT TEST 2010 FOBT 2010 SIGMOIDOSCOPY 2010 VIRTUAL COLONOSCOPY 2010 RSV VACCINE (1 - Risk 50-74 years 1-dose series) 10/12/2015 DEPRESSION SCREENING 10/30/2024 10/31/2023, 08/01/19 INFLUENZA VACCINE (#1) 2024 01/26/2024, 2013 COVID-19 VACCINE ( season) 2025 06/14/2021, 09/24/2020, 09/03/2020 LUNG CANCER SCREENING (LDCT Only) 06/12/2025 06/12/2024, 01/11/2024 BLOOD PRESSURE 07/17/2025 01/14/2025 SMOKING Hx and SMOKELESS TOBACCO SCREENING 01/14/2026 01/14/2025 MAMMOGRAM 03/26/2027 03/26/2025, 1111/2021, 03/28/2022, Additional history exists LIPID PANEL 10/29/2027 10/28/2022, 060 01/2023, 04/22/2021 Adult Td,Tdap Booster 11/11/2027 11/10/2017 , 04/10/2015, 07/05/2005 SCREENING FOR DIABETES 02/14/2028 02/13/2025 COLONOSCOPY 05/07/2028 05/07/2018 COLORECTAL CANCER SCREENING 05/07/2028 ZOSTER VACCINES Completed 05/08/2019, 02/15/2019 PNEUMOCOCCAL VACCINES (50+ years) Completed 10/27/2021 HEPATITIS A VACCINES Aged Out No long er eligible based on patient's age to complete this topic HIB VACCINES Aged Out No longer eligi ble based on patient's age to complete this topic IPV VACCINES Aged Out No longer eligi ble based on patient's age to complete this topic MENINGOCOCCAL VACCINES (ACWY) Aged Out No longer eligible based on patient's age to complete this topic MENINGOCOCCAL VACCINES (B) Aged Out N o longer eligible based on patient's age to complete this topic Medical Devices Not on file Procedures Procedure Name Priority Date/Time Associated Diagnosis Comments BI MAMMOGRAM SCREENING (BILATERAL) Routine 03/26/2025 11:01 AM EST Breast cancer screening by mammogram MRI ABDOMEN (KIDNEYS) WITH AND WITHOUT CONTRAST Routine 02/27/2025 4:43 PM EDT Adrenal nodule BASIC METABOLIC PANEL (BMP) Routine 02/13/2025 11:41 AM EDT Adrenal nodule LFTS (HEPATIC PANEL) Routine 02/13/2025 11:41 AM EDT Right hip pain 25-OH VITAMIN D Routine 01/02/2025 5:52 AM EDT COVID PANDEMIC RESPIRATORY VIRAL ORDER (PRO) Routine 01/01/2025 10:53 AM EDT LAB ADD ON Routine 01/01/2025 8:00 AM EDT CBC AND DIFFERENTIAL Routine 01/01/2025 5:32 AM EDT PHOSPHORUS Routine 01/01/2025 5:32 AM EDT MAGNESIUM Routine 01/01/2025 5:32 AM EDT BASIC METABOLIC PANEL (BMP) Routine 01/01/2025 5:32 AM EDT COVID PANDEMIC RESPIRATORY VIRAL ORDER (PRO) STAT 12/31/2024 8:01 PM EDT D-DIMER STAT 12/31/2024 5:46 PM EDT XR CHEST 1 VIEW Routine 12/31/2024 5:17 PM EDT BASIC METABOLIC PANEL (BMP) STAT 12/31/2024 5:02 PM EDT CBC AND DIFFERENTIAL STAT 12/31/2024 5:02 PM EDT ECG 12-LEAD STAT 12/31/2024 4:[address] CHEST WITH CONTRAST Routine 06/12/2024 1:25 PM EST Hilar adenopathy LIPID PANEL Routine 10/28/2022 10:10 AM EDT Encounter for general adult medical examination with abnormal findings ENDOSCOPY, COLON 05/07/2018 12:3 9 PM EST from Last 3 Months or Most Recently Relevant to Health Maintenance Results * Mammogram Screening (Bilateral) (03/26/2025 11:01 AM EST) Anatomical Region Laterality Modality Breast Left, Breast Right, Breast Bilateral Bila teral Breast Screening us Marci Mora MD IMG MG EXAMS Final Resul t * MRI ABDOMEN (KIDNEYS) WITH AND WITHOUT CONTRAST (02/27/2025 4:43 PM EDT) Anatomical Region Laterality Modality Abdomen Magnetic Resonan ce 03/04/2025 5:18 PM EDT Impressions 03/04/2025 5:30 PM EDT 1. No significant change in 12 mm right adrenal nodule when compared to 02/29/2024 with imaging characteristics consistent with a lipid rich adrenal adenoma. 2. Other findings, as above, including subcentimeter hepatic and renal cysts. Narrative 03/04/2025 5:30 PM EDT MRI ABDOMEN (KIDNEYS) WITH AND WITHOUT CONTRAST Referring clinician's provided indication for this examination in Epic: * Adrenal mass, < 4cm, follow up TECHNIQUE: Multiplanar MR imaging of the abdomen was performed using T1, T2, fat saturated, and diffusion weighted techniques. Dynamic multiphase imaging was also performed after administration of an intravenous gadolinium contrast agent. COMPARISON: MRI ABDOMEN (KIDNEYS) WITH AND WITHOUT CONTRAST ; CT CHEST WITH CONTRAST FINDINGS: The examination is degraded by mild motion. Lower Chest: No effusions. Liver: There is no significant loss of signal on opposed phased imaging. Redemonstrated are a few tiny T2 hyperintense cysts, as before, for instance in segment 5/6 on image 17 of series 3. No suspicious lesions. Biliary: No biliary ductal dilatation. The gallbladder is unremarkable without radiopaque stone nor evidence for acute cholecystitis. Spleen: No splenomegaly or focal lesion. Pancreas: No masses or ductal dilatation. There is no perienteric divisum. Adrenal Glands: Redemonstrated is a rounded T2 isointense nodule within the right adrenal gland measuring 11 x 12 mm on image 19 of series 5 which loses signal on out of phase images and is consistent with an adrenal adenoma. Size and appearance are not definitely changed from prior. Kidneys/Ureters: No solid masses or hydronephrosis. There is a subcentimeter right upper pole cyst. Bowel: There is no visualized bowel obstruction. Peritoneum/Retroperitoneum: No ascites. Lymph Nodes: No enlarged abdominal lymph nodes. Vessels: No abdominal aortic aneurysm. Bones/Soft Tissues: Mild multilevel degenerative changes are noted. There is mild nonspecific edema within the subcutaneous tissues of the lower back. Procedure Note Trevor Palencia MD - 03/04/2025 MRI ABDOMEN (KIDNEYS) WITH AND WITHOUT CONTRAST Referring clinician's provided indication for this examination in Epic: *Adrenal mass, < 4cm, follow up TECHNIQUE: Multiplanar MR imaging of the abdomen was performed using T1,T2, fat saturated, and diffusion weighted techniques. Dynamic multiphaseimaging was also performed after administration of an intravenousgadolinium contrast agent. COMPARISON: MRI ABDOMEN (KIDNEYS) WITH AND WITHOUT CONTRAST ;CT CHEST WITH CONTRAST FINDINGS: The examination is degraded by mild motion. Lower Chest: No effusions. Liver: There is no significant loss of signal on opposed phased imaging.Redemonstrated are a few tiny T2 hyperintense cysts, as before, forinstance in segment 5/6 on image 17 of series 3. No suspicious lesions. Biliary: No biliary ductal dilatation. The gallbladder is unremarkablewithout radiopaque stone nor evidence for acute cholecystitis. Spleen: No splenomegaly or focal lesion. Pancreas: No masses or ductal dilatation. There is no perientericdivisum. Adrenal Glands: Redemonstrated is a rounded T2 isointense nodule withinthe right adrenal gland measuring 11 x 12 mm on image 19 of series 5 whichloses signal on out of phase images and is consistent with an adrenaladenoma. Size and appearance are not definitely changed from prior. Kidneys/Ureters: No solid masses or hydronephrosis. There is asubcentimeter right upper pole cyst. Bowel: There is no visualized bowel obstruction. Peritoneum/Retroperitoneum: No ascites. Lymph Nodes: No enlarged abdominal lymph nodes. Vessels: No abdominal aortic aneurysm. Bones/Soft Tissues: Mild multilevel degenerative changes are noted. There is mild nonspecific edema within the subcutaneous tissues of thelower back. IMPRESSION: 1. No significant change in 12 mm right adrenal nodule when compared to02/29/2024 with imaging characteristics consistent with a lipid richadrenal adenoma. 2. Other findings, as above, including subcentimeter hepatic and renalcysts. Marci Mora MD IMG MR ABDOMEN Final Resul t * LFTs (hepatic panel) (02/13/2025 11:41 AM EDT) ALKALINE PHOSPHATASE 104 39 - 117 U/L [facility] TOTAL BILIRUBIN 0.4 0.0 - 1.2 mg/dL [facility] DIRECT BILIRUBIN 0.1 0.0 - 0.2 mg/dL [facility] Bilirubin (Indirect) NOT CALCULATED 0 - 1.5 mg/dL [facility] AST 18 0 - 37 U/L [facility] ALT 19 0 - 40 U/L [facility] TOTAL PROTEIN 7.2 6.5 - 8.0 g/dL [facility] ALBUMIN 4.6 3.9 - 4.8 g/dL [facility] GLOBULIN 2.6 1 - 4.8 g/dL [facility] A/G Ratio 1.77 1.00 - 4.80 RATIO [facility] Blood 02/13/2025 11:4 1 AM EDT 02/13/2025 11:53 AM EDT Jennifer Obrien MORTGAGE ANALYST LAB BLOOD BKR ORDERAB LES Final Result [address] [address] * (ABNORMAL) Basic metabolic panel (02/13/2025 11:41 AM EDT) Only the most recent of3 resultswithin the time period is included. SODIUM 143 133 - 146 mmol/L [facility] CHLORIDE 106 96 - 108 mmol/L [facility] POTASSIUM 4.0 3.3 - 5.1 mmol/L [facility] CO2 26 21 - 35 mmol/L [facility] BUN 15 6 - 19 mg/dL [facility] CREATININE 0.70 0.5 - 1.5 mg/dL [facility] GLUCOSE 104(H) 70 - 99 mg/dL [facility] CALCIUM 11.3(H) 8.4 - 10.3 mg/dL [facility] EGFR 100 >59 mL/min/1.7 3m2 [facility] Comment:Estimated glomerular filtration rate calculated using the CKD-EPI refit equation. ANION GAP 15 10 - 20 mmol/L [facility] Blood 02/13/2025 11:4 1 AM EDT 02/13/2025 11:53 AM EDT us Marci Mora MD LAB BLOOD BKR ORDERABLES Fi nal Result Performing Organization Address [facility]/ZIP Co de Phone Number [address] [address] * (ABNORMAL) 25-OH vitamin D (01/02/2025 5:52 AM EDT) 25 OH VIT D (TOTAL) 11(L) 30 - 60 ng/mL [facility] Blood 01/02/2025 5:52 AM EDT 01/02/2025 6:00 AM EDT us Emilia Avila MD LAB BLOOD BKR ORDERABLES Adina l Result Performing Organization Address City/[facility]/ZIP Co de Phone Number [address] [address] * COVID Pandemic Respiratory Viral Order (PRO) (01/01/2025 10:53 AM EDT) Only the most recent of2 resultswithin the time period is included. Test Ordered COVID has been ordered [facility] SPECIMEN SOURCE/DESCRIPTION SWAB [facility] SARS-CoV 2 (COVID-19) PCR Negative Negative [facility] Comment: SARS-CoV-2 not detected Negative results do not preclude SARS-CoV-2 infection and should not be used as the sole basis for patient management decisions. Negative results must be combined with clinical observations, patient history, and epidemiological information. This test has been authorized by the FDA under an Emergency Use Authorization (EUA) for use by authorized laboratories. Other (Nasal swab) 01/01/2025 10:53 AM EDT 01/01/2025 11:12 AM EDT Emilia Avila MD LAB GENERAL ORDERABLES Final Result Performing Organization Address [facility]/ZIP Co de Phone Number [address] [address] * Lab Add On: vitamin d-25 oh (01/01/2025 8:00 AM EDT) TEST REQUESTED VITAMIN D 25 OH [facility] Comments (Chemistry) Add on order being processed. Floor or provider will be notified if testing cannot be performed [facility] 01/01/2025 8:00 AM EDT 01/01/2025 8:21 AM EDT Emilia Avila MD LAB BLOOD ORDERABLES Final Re sult Performing Organization Address City/[facility]/ZIP Co de Phone Number [address] [address] * (ABNORMAL) CBC and differential (01/01/2025 5:32 AM EDT) Only the most recent of2 resultswithin the time period is included. WBC 14.28(H) 4.00 - 11.00 K/uL [facility] RBC 5.41(H) 4.00 - 5.20 M/uL [facility] HGB 15.0 12.0 - 16.0 g/dL [facility] HCT 45.1 36.0 - 46.0 % [facility] PLT 316 150 - 450 K/uL [facility] MCV 83.4 80.0 - 100.0 fL [facility] MCH 27.7 27.0 - 31.0 pg [facility] MCHC 33.3 32.0 - 36.0 g/dL [facility] RDW 13.1 11.5 - 14.5 % [facility] MPV 10.3 8.4 - 12.0 fL [facility] NRBC 0.00 0.00 /100 WBCs [facility] ABSOLUTE NRBC 0.00 0.00 K/uL [facility] DIFF METHOD Auto [facility] NEUTS 85.3(H) 48.0 - 76.0 % [facility] LYMPHS 8.8(L) 18.0 - 41.0 % [facility] MONOS 5.0 4.0 - 11.0 % [facility] EOS 0.0 0.0 - 5.0 % [facility] BASOS 0.1 0.0 - 1.5 % [facility] Granulocytes, immature (%) 0.8 0.0 - 0.9 % [facility] ABSOLUTE NEUTS 12.20(H) 1.92 - 7.60 K/uL [facility] ABSOLUTE LYMPHS 1.25 0.72 - 4.10 K/uL [facility] ABSOLUTE MONOS 0.71 0.16 - 1.10 K/uL [facility] ABSOLUTE EOS 0.00 0.00 - 0.50 K/uL [facility] ABSOLUTE BASOS 0.01 0.00 - 0.15 K/uL [facility] Granulocytes, immature 0.11(H) 0.00 - 0.09 K/uL [facility] Blood 01/01/2025 5:32 AM EDT 01/01/2025 6:02 AM EDT us Jasmin A Armenian DO LAB BLOOD BKR ORDERABLES Adina l Result [address] [address] * (ABNORMAL) Phosphorus (01/01/2025 5:32 AM EDT) PHOSPHORUS 2.1(L) 2.7 - 4.5 mg/dL [facility] Blood 01/01/2025 5:32 AM EDT 01/01/2025 6:02 AM EDT Jasmin A Armenian DO LAB BLOOD BKR ORDERABLES Adina l Result Performing Organization Address City/[facility]/ZIP Co de Phone Number [address] [address] * Magnesium (01/01/2025 5:32 AM EDT) MAGNESIUM 2.5 1.6 - 2.6 mg/dL [facility] Blood 01/01/2025 5:32 AM EDT 01/01/2025 6:02 AM EDT Jasmin A Armenian DO LAB BLOOD BKR ORDERABLES Adina l Result Performing Organization Address [facility] Co de Phone Number [address] [address] * D-dimer (12/31/2024 5:46 PM EDT) D-DIMER 333 <500 ng/mL FEU [facility] Comment:In patients with low to moderate pre-test probability scores for VTE (PE or DVT), a D-Dimer cut-off less than 500 ng/mL (FE) has a negative predictive value (NPV) of 97 to 100%. Blood 12/31/2024 5:46 PM EDT 12/31/2024 5:50 PM EDT Aime Awan MD LAB BLOOD BKR ORDERABLES Final Result Performing Organization Address [facility]/ZIP Co de Phone Number [address] [place] [address] * XR CHEST 1 VIEW (12/31/2024 5:17 PM EDT) Anatomical Region Laterality Modality Chest Computed Radiogr aphy 12/31/2024 6:39 PM EDT Impressions 12/31/2024 6:40 PM EDT No acute process. Narrative 12/31/2024 6:40 PM EDT XR CHEST 1 VIEW COMPARISON: XR CHEST PA AND LATERAL 2 VIEWS FINDINGS: Devices/Tubes/Lines: None. Lungs: No focal consolidation or pulmonary edema. Pleura: No pleural effusion or pneumothorax. Heart/Mediastinum: Similar appearance. Bones/Soft Tissues: No acute skeletal abnormality. Procedure Note Boom Mensah, DO - 12/31/2024 XR CHEST 1 VIEW COMPARISON: XR CHEST PA AND LATERAL 2 VIEWS FINDINGS: Devices/Tubes/Lines: None. Lungs: No focal consolidation or pulmonary edema. Pleura: No pleural effusion or pneumothorax. Heart/Mediastinum: Similar appearance. Bones/Soft Tissues: No acute skeletal abnormality. IMPRESSION: No acute process. us Aime Awan MD IMG XR CHEST Final Result * ECG 12-LEAD (12/31/2024 4:54 PM EDT) Ventricular Rate EKG/MIN 119 BPM [facility] Atrial Rate 119 BPM [facility] MA Interval 154 ms [facility] QRS Duration 78 ms [facility] QT Interval 308 ms [facility] QTC Interval 433 ms [facility] P [place] 70 degrees [facility] R Wave [place] 50 degrees [facility] T Wave [place] 60 degrees [facility] 12/31/2024 4:54 PM EDT 01/01/2025 6:27 PM EDT Narrative [facility] - 01/01/2025 6:27 PM EDT Sinus tachycardia Biatrial enlargement Abnormal ECG When compared with ECG of 11-Jan-2024 08:56, Premature atrial complexes are no longer Present Confirmed by Zach LAZO ([id number]) on 01/01/2025 6:27:24 PM us Aime Awan MD ECG ORDERABLES Final Result [facility] * CT CHEST WITH CONTRAST (06/12/2024 1:25 PM EST) Anatomical Region Laterality Modality Chest Computed Tomogra phy 06/14/2024 8:04 AM EST Impressions 06/14/2024 8:10 AM EST 1. Decreased right hilar lymph node, most likely previously reactive. Narrative 06/14/2024 8:[address] CHEST WITH CONTRAST Referring clinician's provided indication for this examination in [facility]: * Abnormal xray - adenopathy TECHNIQUE: Multidetector CT of the chest was performed with intravenous contrast using tailored dose modulation techniques. COMPARISON: CT CHEST WITH CONTRAST FINDINGS: Devices/Tubes/Lines: None. Lungs: There are no new concerning pulmonary nodules. Mild diffuse bronchial wall thickening. Mild mucus plugging in the right lower lobe. Patent central airways. Pleura: No pleural effusion or pneumothorax. Mediastinum: No pericardial effusion. No detectable coronary artery calcification. Lymph Nodes: Decreased 8 mm short axis right hilar lymph node (2:42), previously 14 mm. Upper Abdomen: Redemonstrated right adrenal gland nodule, reported as corresponding to an adenoma on prior MRI abdomen. Chest Wall: Partially imaged probable fat necrosis in the left breast. Bones: No destructive osseous lesions. Degenerative changes are in the imaged spine. Procedure Note Amita Denton MD - 06/14/2024 CT CHEST WITH CONTRAST Referring clinician's provided indication for this examination in [facility]: *Abnormal xray - adenopathy TECHNIQUE: Multidetector CT of the chest was performed with intravenouscontrast using tailored dose modulation techniques. COMPARISON: CT CHEST WITH CONTRAST FINDINGS: Devices/Tubes/Lines: None. Lungs: There are no new concerning pulmonary nodules. Mild diffusebronchial wall thickening. Mild mucus plugging in the right lower lobe.Patent central airways. Pleura: No pleural effusion or pneumothorax. Mediastinum: No pericardial effusion. No detectable coronary arterycalcification. Lymph Nodes: Decreased 8 mm short axis right hilar lymph node (2:42),previously 14 mm. Upper Abdomen: Redemonstrated right adrenal gland nodule, reported ascorresponding to an adenoma on prior MRI abdomen. Chest Wall: Partially imaged probable fat necrosis in the left breast. Bones: No destructive osseous lesions. Degenerative changes are in theimaged spine. IMPRESSION: 1. Decreased right hilar lymph node, most likely previously reactive. Marci Mora MD IMG CT CHEST Final Resul t * (ABNORMAL) Lipid panel (10/28/2022 10:10 AM EDT) HDL 66 mg/dL [facility] Comment: Interpretation <40 mg/dL: Low HDL cholesterol (major risk factor for CHD) Greater than or equal to 60 mg/dL: High HDL cholesterol ( negative risk factor for CHD) HDL - cholesterol is affected by a number of factors, e.g. smoking, excerise, hormones, sex and age. CHOLESTEROL 222 0 - 240 mg/dL [facility] TRIGLYCERIDES 90 30 - 160 mg/dL [facility] LDL 138(H) 50 - 129 mg/dL [facility] Comment: LDL levels in terms of risk for coronary heart disease: <100 mg/dL: Optimal 100-129 mg/dL: Near or above optimal 130-159 mg/dL: Borderline high 160-189 mg/dL: High >190 mg/dL: Very High CARDIAC RISK RATIO 3.4 3.3 - 4.4 [facility] Blood 10/28/2022 10:1 0 AM EDT 10/28/2022 10:17 AM EDT us Marci Mora MD LAB BLOOD BKR ORDERABLES Fi nal Result [facility] [address] [place] [address] * ENDOSCOPY, COLON (05/07/2018 12:39 PM EST) Narrative Transcriptions Eleno Stahl MD - 05/07/2018 12:39 PM EST Patient Name: Nidhi Brad Attending MD:: ELENO STAHL MD, Procedure Date: 05/07/2018 12:39PM Date of : 1965 Age: 52 Admit Type: Outpatient Gender: Female Room: [place] [address] Referring MD: Marci Mora MD Exam Type: Colonoscopy Indications: Screening for colorectal malignant neoplasm Medications: Monitored Anesthesia Care Procedure: Informed consent was obtained from the patient after discussion of the indications, limitations,alternatives, benefits, and risks of the procedure. Risksspecifically discussed include but are not limited to medication reactions, missed lesions, bleeding, perforation, orthe need for emergent surgery. Throughout the procedure, the patient's blood pressure, pulse, end-tidal CO2, and oxygen saturations were monitored continuously. The Olympus pediatric variable colonoscope [id number]-[id number] was introduced through the anus and advanced to thececum, identified by appendiceal orifice and ileocecal valve.The colonoscopy was performed without difficulty. Thepatient tolerated the procedure well. The quality of the bowel preparation was excellent. The quality of the bowel preparation was evaluated using the BBPS ([place] Bowel Preparation Scale) with scores of: Right Colon = 3(entire mucosa seen well with no residual staining, small fragments of stool or opaque liquid), Transverse Colon= 3 (entire mucosa seen well with no residual staining,small fragments of stool or opaque liquid) and Left Colon = 3 (entire mucosa seen well with no residual staining,small fragments of stool or opaque liquid). The total BBPSscore equals 9. The quality of the bowel preparation was excellent. Complications: No immediate complications. Estimated blood loss:Minimal. Findings: The perianal and digital rectal examinations werenormal. A 4 mm polyp was found in the sigmoid colon. The polypwas sessile. The polyp was removed with a cold snare. Resection and retrieval were complete. Internal hemorrhoids were found during retroflexion.The hemorrhoids were mild. The exam was otherwise normal throughout the examined colon. Impression: - One 4 mm polyp in the sigmoid colon, removed with acold snare. Resected and retrieved. - Internal hemorrhoids. Recommendation: - Discharge patient to home. - Await pathology results. ELENO STAHL MD, 05/07/2018 1:02:03 PM This report has been signed electronically. Number of Addenda: 0 Note Initiated On: 05/07/2018 12:39 PM Procedure Code(s): --- Professional --- 61909, Colonoscopy, flexible; with removal of tumor(s), polyp(s), or other lesion(s) by snare technique --- Technical --- 59278, Colonoscopy, flexible; with removal of tumor(s), polyp(s), or other lesion(s) by snare technique Diagnosis Code(s): --- Professional --- D12.5, Benign neoplasm of sigmoid colon K64.8, Other hemorrhoids Z12.11, Encounter for screening for malignant neoplasm of colon --- Technical --- D12.5, Benign neoplasm of sigmoid colon K64.8, Other hemorrhoids Z12.11, Encounter for screening for malignant neoplasm of colon CPT copyright 2016 [employer]. All rights reserved. The codes documented in this report are preliminary and upon community service organization director reviewmay be revised to meet current compliance requirements. [address] [place] [address] [id number] Marci Mora MD GI PROCEDURE ORDERABLES Fin al Result from Last 3 Months or Most Recently Relevant to Health Maintenance Insurance [facility] Advance Directives For more information, please contact: [phone] (9AM - 5PM [place]/[facility], Monday-Monday) Documents on File Type Date Recorded Patient Passenger Barge Master Expl anation Healthcare Proxy 01/15/2024 4:39 PM * Full Code (Latest Code Status on File) Date Activated Date Inactivated Comments 12/31/2024 10:06 PM Question Answer Comments Code Status Confirmed With: Patient * Full Code Date Activated Date Inactivated Comments 01/11/2024 5:51 PM 12/31/2024 10:06 PM Question Answer Comments Code Status Confirmed With: Other (specify below ) Care Teams [employer] Sales Representative Relationship Specialty Start Date End Date Marci Mora MD [address] [place] [address], [address] [place] [address] [email or web address] PCP - General Internal Medicine 09/05/17 Additional Source Comments The information contained in this document represents components of the legal health record. It is not the complete legal health record.[facility]
--- OUTSIDE RECORDS SUMMARY | 2025-04-01 13:03 | XMS_ITS | Encounter Summary ---
Author Organization [facility] Address [address] [place] [address] Phone Care Team Providers Care Nurse Practitioner Adult Name Role Phone Marci oMra MD Primary Care Provider [phone] Marci Mora MD Unavailable [phone] Encounter Details Date Type Department Care Team (Late Contact Info) Description 05/07/2018 Procedure Pass [facility] Endoscopy Admitting Dept Virtual Department [address] [place] [phone] Social History Tobacco Use Types Packs/Day Years Used Date Smoking Tobacco: Every Day Cigarettes Smokeless Tobacco: Never Comments:smokes about 7 ciga rettes, up to 1/2 PPD, started around 16 Alcohol Use Standard Drinks/Week Comments Yes 0 (1 standard drink = 0.6 oz pur e alcohol) 3 per week Comments Unknown Sex and Gender Information Value [...] Encounters Date Type Department Care Team (Late Contact Info) Description 06/11/2025 11:30 AM EST Office Visit [facility] Pulmonary, Allergy and Critical Care Medicine [address] [place] [address] Han Dickinson MD [address] [place] [phone] [email or web address] documented as of this encounter Visit Diagnoses Not on filedocumented in this encounter Additional Health Concerns Infection Onset Date Last Indicated Resolved Time CoV-Risk 02/21/2023 02/21/2023 03/04/2023 1:21 AM EDT CoV-Risk 08/01/2023 08/01/2023 08/12/2023 1:22 AM EDT COVID-19 12/30/2023 01/12/2024 02/02/2024 1:21 AM EDT CoV-Risk Comment:Per note documentation 12/31/2024 12/31/2024 12:51 PM EDT Assessment Noted Time A Body Mass Index follow-up plan has been documented for the patient 11/10/2017 8:31 PM EDT PHQ-2 Depression Total Score: 0 11/11/19 18 11:09 AM EDT documented as of this encounter Care Teams Nurse Practitioner Adult Relationship Specialty Start Date End Date Marci Mora MD [address] [place] [phone] PCP - General Internal Medicine 09/05/17 Marci Mora MD [address] [place] [phone] Insurance Assigned Provider 08/26/23 08/25/24 documented as of this encounter Additional Source Comments The information contained in this document represents components of the legal health record. It is not the complete legal health record.[facility]
--- OUTSIDE RECORDS SUMMARY | 2025-04-01 13:03 | XMS_ITS | Encounter Summary ---
Author Organization [facility] Address [address] [facility] [address] [place] [phone] Phone Care Team Providers Care Bird Tender Name Role Phone Marci Mora MD Primary Care Provider [phone] Marci Mora MD Unavailable [phone] Encounter Details Date Type Department Care Team (Late st Contact Info) Description 05/17/2022 Procedure Pass [facility], [address] [place] [address] Social History Tobacco Use Types Packs/Day Years [...] work, study, or receive health care? No 10/27/2021 Education Answer Date Recorded Are you interested in help w ith more adult education (for example, completing high school, GED, job training, learning the Zimbabwean language, technical skills, or developing parenting skills)? No 10/27/2021 Food Answer Date Recorded Within the past 6 months we worried whether our food would run out before we got money to buy more. Never True 10/27/2021 Within the past 6 months the food we bought just didn't last and we didn't have enough money to get more. Never True Residential Stability Answer Date Recor ded What is your housing situation today? I have finn burns 10/27/2021 How many times have you move d in the past 12 months? Zero (I did not move) 10/27/2021 06 Are you worried that in t he next 2 months, you may not have your own housing to live in? No 10/27/2021 Paying for Meds Answer Date Recorded Do you have trouble paying for medicines? Yes 10/27/2021 Paying Utility Bills Answer Date Record ed Do you have trouble paying your heating or elect ricity bill? Yes 10/27/2021 Transportation Answer Date Recorded Has the lack of transportati on kept you from medical appointments or from getting medications? No 10/27/2021 Unemployment Answer Date Recorded Are you currently unemployed or working on a part-time or temporary basis, and looking for work? No 10/27/2021 Comments Unknown Sex and Gender Information Value [...] on file documented as of this encounter Last Filed Vital Signs Vital Sign Reading Time Taken Comments Blood Pressure - - Pulse - - Temperature - - Respiratory Rate - - Oxygen Saturation - - Inhaled Oxygen Concentration - - Weight 86.2 kg (190 lb) 05/18/2022 5:52 PM EST Height 165.1 cm (5' 5 ) 05/18/2022 5:52 PM EST 1 /2 Body Mass Index 31.62 05/18/2022 5:52 PM EST documented in this encounter Plan of Treatment Upcoming Encounters Date Type Department Care Team (Late st Contact Info) Description 06/11/2025 11:30 AM EST Office Visit [facility] Pulmonary, Allergy and Critical Care Medicine [address] [place] [address] [place] [address] Han Dickinson MD [address] [place] [phone] [email or web address] documented as of this [...] plan has been documented for the patient 10/28/2021 1:19 PM EDT PHQ-2 Depression Total Score: 1 10/28/19 22 1:13 PM EDT documented as of this encounter Care Teams Bird Tender Relationship Specialty Start Date End Date Marci Mora MD [address] [place] [phone] [email or web address] PCP - General Internal Medicine 09/05/17 Marci Mora MD [address] [place] [phone] Insurance Assigned Provider 08/26/23 08/25/24 documented as of this encounter Additional Source Comments The information contained in this document represents components of the legal health record. It is not the complete legal health record.[facility]
--- OUTSIDE RECORDS SUMMARY | 2025-04-01 13:03 | XMS_ITS | Encounter Summary ---
Author Organization [facility] Address [address] [facility] [address] [place] [address] Phone Care Team Providers Care Chronic Condition Nurse Name Role Phone Marci Mora MD Primary Care Provider [phone] Encounter Details Date Type Department Care Team (Late st Contact Info) Description 03/27/2025 Orders Only [facility] [address] [place] [address] [place] [address] Marci Mora MD [address] [facility], 2nd [place] [address] [email or web address] Breast cancer screening by mammogram Social History Tobacco Use Types Packs/Day Years [...] high school, GED, job training, learning the Georgian language, technical skills, or developing parenting skills)? [...] your housing situation today? I have finn sing 12/31/2024 How many times have you move [...] Pulmonary, Allergy and Critical Care Medicine [address] [place] [address] Han Dickinson MD [address] [place] [phone] [email or web address] documented as of this encounter Procedures Procedure Name Priority Date/Time Associated Diagnosis Comments BI MAMMOGRAM SCREENING (BILATERAL) Routine 03/26/2025 11:01 AM EST Breast cancer screening by mammogram documented in this encounter Results * Mammogram Screening (Bilateral) (03/26/2025 11:01 AM EST) Anatomical Region Laterality Modality Breast Left, Breast Right, Breast Bilateral Bila teral Breast Screening Marci Mora MD IMG MG EXAMS Final Resul t documented in this encounter Visit Diagnoses Diagnosis Breast cancer screening by mammogram documented in this encounter Additional Health Concerns Assessment Noted Time PHQ-9 Depression Total Score: 4 08/01/19 1:54 PM EDT A Body Mass Index follow-up plan has been documented for the patient 10/31/2023 10:13 PM EDT PHQ-2 Depression Total Score: 0 10/31/19 8:31 AM EDT documented as of this encounter Care Teams Chronic Condition Nurse Relationship Specialty Start Date End Date Marci Mora MD [address] [place] [phone] PCP - General Internal Medicine 09/05/17 documented as of this encounter Additional Source Comments The information contained in this document represents components of the legal health record. It is not the complete legal health record.[facility]
--- OUTSIDE RECORDS SUMMARY | 2025-04-01 13:03 | XMS_ITS | Encounter Summary ---
Author Organization [facility] Address [address] [facility] [address] [place] [phone] Phone Care Team Providers Care Cent[employer] Technical Lead Senior Developer Name Role Phone Marci Mora MD Primary Care Provider [phone] Encounter Details Date Type Department Care Team (Late st Contact Info) Description 02/05/2025 Procedure Pass [facility] [address] [place] [address] Social History Tobacco Use Types Packs/Day Years [...] high school, GED, job training, learning the Thai language, technical skills, or developing parenting skills)? [...] Pulmonary, Allergy and Critical Care Medicine [address] [place] [address] Han Dickinson MD [address] [place] [phone] [email or web address] documented as of this encounter Visit Diagnoses Not on filedocumented in this encounter Additional Health Concerns Assessment Noted Time PHQ-9 Depression Total Score: 4 08/01/19 24 1:54 PM EDT A Body Mass Index follow-up plan has been documented for the patient 10/31/2023 10:13 PM EDT PHQ-2 Depression Total Score: 0 10/31/19 24 8:31 AM EDT documented as of this encounter Care Teams [employer] Technical Lead Senior Developer Relationship Specialty Start Date End Date Marci Mora MD [address] [place] [phone] [email or web address] PCP - General Internal Medicine 09/05/17 documented as of this encounter Additional Source Comments The information contained in this document represents components of the legal health record. It is not the complete legal health record.[facility]
[2025-04-01 13:10] VITALS: BP 163/94; PULSE 116; RESP 22; TEMP 36.4; O2SAT 92
[2025-04-01 15:06] VITALS: BP 163/94; PULSE 116; RESP 22; TEMP 36.4; O2SAT 92
== END 2025-04-01 15:17 | disposition home or self-care (01) ==
PROVIDERS: Emergency Provider Emergency Medicine; PCP Internal Medicine
DX: J45.901 Unspecified asthma with (acute) exacerbation (principal); R06.02 Shortness of breath; R00.0 Tachycardia, unspecified; F17.200 Nicotine dependence, unspecified, uncomplicated; Z71.6 Tobacco abuse counseling
CPT/HCPCS: 36415; 71045; 80048; 83880; 84484; 85025; 93005; 94640; 96374; 99284; 99285; J2919

== ENCOUNTER → 2025-04-01 11:28 | Outpatient (BNV) | payer OTHER, SELFPAY | PROVIDERS: Emergency Provider Emergency Medicine; PCP Internal Medicine; Visit Provider Internal Medicine Cardiovascular Disease | DX: R00.0 Tachycardia, unspecified (principal) | CPT/HCPCS: 93010 ==

== ENCOUNTER → 2025-04-01 11:28 | Outpatient (BNV) | payer OTHER, SELFPAY | PROVIDERS: Emergency Provider Emergency Medicine; PCP Internal Medicine; Visit Provider Radiology Diagnostic Radiology | DX: R06.02 Shortness of breath (principal) | CPT/HCPCS: 71045 ==